=== PATIENT | female | born 1980 | race Caucasian/White ===

== ENCOUNTER 2024-07-08 11:32 | Emergency (ER) | payer OTHER, SELFPAY ==
[2024-07-08 11:59] LABS: % Basophils 0.4 % (0-2); % Eosinophils 1.5 % (0-6); % Immature Granulocytes 0.3 % (0-0.5); % Lymphocytes 23.8 % (20.5-51.1); Absolute Eosinophils 0.1 10^3/uL (0-0.7); Absolute Lymphocytes 2.1 10^3/uL (1.2-3.4); Absolute Monocytes 0.7 10^3/uL (0.1-0.6); Absolute Neutrophils 5.9 10^3/uL (1.4-6.5); Hemoglobin 14.4 g/dL (12.0-16.0); Mean Corp Hgb Conc. 35.1 g/dL (33.0-37.0); Mean Corpuscular Hgb 29.9 pg (27.0-31.0); Mean Corpuscular Volume 85.2 fL (81.0-99.0); Mean Platelet Volume 9.2 fL (7.4-10.4); Nucleated Red Blood Cells % 0 %; Platelet Count 263 10^3/uL (130-400); Red Blood Cell Count 4.81 10^6/uL (4.20-5.40); Red Cell Dist. Width 12.3 % (11.5-14.5)
[2024-07-08 12:08] LABS: HCG, Serum Qualitative Screen Negative
[2024-07-08 12:12] LABS: ALT (SGPT) 39 U/L (0-35); AST (SGOT) 34 U/L (14-36); Albumin 4.5 g/dl (3.5-5.0); Alkaline Phosphatase 69 U/L (38-126); Blood Urea Nitrogen 21 mg/dl (7-17); Calcium 10.3 mg/dl (8.4-10.2); Carbon Dioxide 23 mmol/L (22-30); Chloride 105 mmol/L (98-107); Glucose 103 mg/dl (70-99); Potassium 4.3 mmol/L (3.5-5.1); Sodium 140 mmol/L (135-145); Total Bilirubin 0.8 mg/dl (0.2-1.3); eGFR > 60.00
[2024-07-08 12:24] LABS: Troponin I < 0.012 ng/ml
[2024-07-08 13:19] VITALS: BMI 29.7
[2024-07-08 13:24] VITALS: BP 135/68
[2024-07-08 14:00] VITALS: BP 112/72
--- NOTE | 2024-07-08 14:35 | ED.GENMED ---
History of Present Illness
General
Chief Complaint: Chest Pain
Time Seen by Provider: 07/08/24 14:04
History of Present Illness
History of Present Illness:
Patient is a 43-year-old woman with no past medical history presenting to the emergency department with chest pain. Patient states around 11 AM she was in the kitchen when all of a sudden she had chest pain that was midsternal and wrapped around to
her back. She states that it was a pressure like a squeeze and she did have some difficulty breathing. She states that this lasted for few hours and now it is mostly resolved. This is never happened to her before. No history of exertional chest
pain. No hemoptysis or leg swelling hormone use or recent travel or history of malignancy. She does feel much better now. No nausea or vomiting. No fevers or chills. No shortness of breath. She denies lifting anything heavy
Phy Exam
Physical Exam
Physical Exam:
GENERAL: in no acute distress
HEENT: normocephalic, extraocular movements intact, moist oral mucosa
NECK: normal inspection
Chest: Tenderness to palpation at the mid sternum
RESPIRATORY: no respiratory distress, clear to auscultation bilaterally
CARDIOVASCULAR: regular rate and rhythm, 2+ radial pulses bilaterally
ABDOMEN/: soft, non-distended, non-tender to palpation, no rebound or guarding
EXTREMITIES: non-tender, no edema/swelling
NEUROLOGIC: awake and alert, moves all extremities
SKIN: warm
Scores
Heart Score for Chest Pain Patients
STEMI patient?: Not applicable
Course
Orders/Labs/Results
Orders:
Orders
07/08/24 11:34
EKG [Electrocardiogram (*1)] Urgent
Reason for Study: Chest Pain
EKG- Treatment ONCE
07/08/24 11:38
Test Result ONCE
07/08/24 11:48
Complete Blood Count/With Diff Urgent
Comprehensive Metabolic Panel Urgent
HCG, Serum Qualitative Screen Urgent
Troponin I Urgent
07/08/24 14:18
CR Chest - 2 Views Urgent
Comment:
Reason For Exam: chest pain
07/08/24 14:19
Ibuprofen [Motrin] 600 mg PO NOW STA
07/08/24 15:11
EKG [Electrocardiogram (*1)] Urgent
Reason for Study: Chest Pain
Comment: 2nd trop
EKG- Treatment ONCE
07/08/24 15:20
Troponin I Urgent
Abnormal Lab Results
07/08/24
11:48
Absolute Monos (auto) 0.7 H 10^3/uL
(0.1-0.6)
BUN 21 H mg/dl
(7-17)
Glucose 103 H mg/dl
(70-99)
Calcium 10.3 H mg/dl
(8.4-10.2)
ALT 39 H U/L
(0-35)
07/08/24 11:48
07/08/24 11:48
Vital Signs
Initial and Last Documented VS:
Initial Vital Signs
Temp Pulse Resp Pulse Ox
98.4 F 82 18 10
07/08/24 11:39 07/08/24 11:39 07/08/24 11:39 07/08/24 11:39
Last Documented Vital Signs
Temp Pulse Resp BP Pulse Ox
98.4 F 77 16 135/68 100
07/08/24 11:39 07/08/24 13:24 07/08/24 13:24 07/08/24 13:24 07/08/24 13:24
MDM/Problems Addressed
Differential Diagnosis Includes:
Patient is a 43-year-old woman who is otherwise healthy presenting to the emergency department with chest pain that is now mostly resolved. Vitals here are unremarkable and exam does show midsternal chest wall tenderness. Unclear etiology but
likely musculoskeletal in nature. Less likely to be ACS. She is PERC negative so unlikely to be PE. History and exam not consistent with aortic pathology. She did have blood work obtained prior to evaluation which was unremarkable. She did have
a troponin that was negative. However given that the onset of pain was at 11 AM she will need a delta troponin. Will give Motrin and obtain a chest x-ray
*Critical Care Note
Total Time (30-74mins, 75-104mins- exclusive of procedures): Not Applicable
Update Note
Update Note:
Delta troponin flat. X-ray per my interpretation without any obvious abnormality. Will discharge at this time
ED Attending Note
-
Portions of this chart may have been created with voice recognition software.� Occasional wrong word or��sound alike� substitutions may have occurred due to the inherent limitations of voice recognition software.
Discharge Plan
Departure
Prescriptions:
No Action
prenat.vits,tiana,[id number]-[id number] [ Vitamin] 1 TAB tablet
1 tab PO DAILY
oxycodone-acetaminophen 5 MG/325 MG tablet
2 tab PO Q3HPRN PRN (Reason: severe pain) Qty: 0 0RF
oxycodone-acetaminophen 5 MG/325 MG tablet
1 tab PO Q4HPRN PRN (Reason: moderate pain) Qty: 18 0RF
ibuprofen 600 MG tablet
600 mg PO Q4HPRN PRN (Reason: moderate pain/cramps) Qty: 30 0RF
Referrals:
Magnus Rebolledo MD [Family Provider] -
Interventions
Interventions:
*Risk Screen - Suicide Last Done: 07/08/24 13:19
*General Assessment Last Done: 07/08/24 13:19
*Neglect/Abuse Screening Last Done: 07/08/24 13:19
ED- Fall Risk Assessment Last Done: 07/08/24 13:19
*ED COVID-19 Vaccine History Last Done: 07/08/24 13:19
ED- Cardiac Assessment Last Done: 07/08/24 13:19
Discharge Date and Time
Print Language: [place]
[2024-07-08 15:15] VITALS: BP 106/80
[2024-07-08 15:52] LABS: Troponin I < 0.012 ng/ml
[2024-07-08 16:00] VITALS: BP 134/75
[2024-07-08] MEDS: MOTRIN 600 MG PO (16:53)
--- NOTE | 2024-07-08 17:15 | EDRN ---
Reviewed discharge instructions with patient. Verbalized understanding. Ambulated with steady gait to the lobby.
[2024-07-08 17:16] VITALS: BP 134/75
== END 2024-07-08 17:05 | disposition home or self-care (01) ==
LOC: EMR 11:32
PROVIDERS: Emergency Medicine; EMERGENCY PHYSICIAN Student in an Organized Health Care Education/Training Program; FAMILY PHYSICIAN Family Medicine
DX: R07.89 Other chest pain (principal)
CPT/HCPCS: 99283; 71046; 80053; 84484; 84703; 85025; 93005

== ENCOUNTER → 2024-11-17 07:14 | Outpatient (REF) | payer OTHER, SELFPAY | LOC: WDC 07:14 | PROVIDERS: ATTENDING PHYSICIAN Nurse Practitioner Family | DX: Z12.31 Encounter for screening mammogram for malignant neoplasm of breast (principal) | CPT/HCPCS: 77063; 77067 ==